=== PATIENT | female | born 1990 | race African-American/Black ===

== ENCOUNTER 2022-05-27 02:57 | Inpatient (IN) | payer MEDICAID ==
[~2022-05-27] VITALS: Ht 149.9 cm; Wt 54.4 kg
[2022-05-27] MEDS ORDERED: METHYLPREDNISOLONE SOD SUCC 125 MG/2 ML VIAL IV STA (03:17)
[2022-05-27] MEDS ORDERED: IPRATROPIUM BROMIDE (0.02%) 0.5MG/2.5ML NEB HHN STA ×2 (03:17→08:54)
[2022-05-27] MEDS ORDERED: ALBUTEROL (0.083%) 2.5MG/3ML NEB HHN SCH (03:30)
[2022-05-27] MEDS ORDERED: SODIUM CHLORIDE 0.9% 1,000 ML IV ONE (03:30)
[2022-05-27] MEDS ORDERED: MAGNESIUM 2 G PREMIX 50 ML IV ONE (03:30)
[2022-05-27 04:05] LABS: HEMATOCRIT. 42.5 % (36.0-48.0); MEAN CORPUSCULAR HEMOGLOBIN 28.8 pg (28.0-32.0); MEAN CORPUSCULAR VOLUME 87.6 fL (81.0-99.0); MEAN PLATELET VOLUME 7.8 fl (7.4-10.4); PLATELET 290 x1000/uL (130-400); RED BLOOD CELL COUNT 4.85 mill/uL (4.2-5.4); RED CELL DISTRIBUTION WIDTH 13.9 % (11.6-14.6)
[2022-05-27 04:52] LABS: CHLORIDE 106 mEq/L (98-107)
[2022-05-27 05:01] LABS: PLATELET ESTIMATE NORMAL
[2022-05-27] MEDS ORDERED: LEVOFLOXACIN 750MG PREMIX 150 ML IV ONE (06:00)
[2022-05-27] MEDS ORDERED: LEVOFLOXACIN 750MG PREMIX 150 ML IV SCH (07:45)
[2022-05-27] MEDS ORDERED: POTASSIUM CHLORIDE 20MEQ TABLET SR PO NR (08:45)
[2022-05-27] MEDS ORDERED: ALBUTEROL (0.083%) 2.5MG/3ML NEB HHN STA (08:54)
[2022-05-27] MEDS: LORAZEPAM 0.5MG TABLET PO NR ×2 (10:00→16:54)
[2022-05-27] MEDS: GUAIFENESIN-DM 200MG-20MG/10ML UDC PO PRN (11:46)
[2022-05-27] MEDS: LORAZEPAM 2MG/ML CPJ IV PRN ×2 (11:46→16:57)
[2022-05-27 11:59] LABS: CLARITY URINE CLEAR (CLEAR); COLOR URINE YELLOW (YELLOW); KETONES URINE NEGATIVE (NEGATIVE); LEUKOCYTE ESTERASE URINE NEGATIVE (NEGATIVE); NITRITE URINE NEGATIVE (NEGATIVE); OCCULT BLOOD URINE TRACE (NEGATIVE); PH URINE 5.5 (4.5-8.0); PROTEIN URINE NEGATIVE (NEGATIVE); SPECIFIC GRAVITY URINE 1.005 (1.005-1.030); UROBILINOGEN URINE 0.2 E.U./dL (0.2-1.0)
[2022-05-27] MEDS ORDERED: IPRATROPIUM/ALBUTEROL 0.5-3(2.5)MG/3ML NEB HHN SCH (12:00)
[2022-05-27 12:46] LABS: *AMPHETAMINES SCREEN URINE NEGATIVE (NEGATIVE); *BARBITURATES SCREEN URINE NEGATIVE (NEGATIVE); *BENZODIAZEPINES SCREEN URINE NEGATIVE (NEGATIVE); *COCAINE SCREEN URINE NEGATIVE (NEGATIVE); METHADONE URINE SCREEN NEGATIVE (NEGATIVE); OPIATES URINE SCREEN NEGATIVE (NEGATIVE); PHENCYCLIDINE URINE SCREEN NEGATIVE (NEGATIVE)
[2022-05-27] MEDS ORDERED: IPRATROPIUM/ALBUTEROL 0.5-3(2.5)MG/3ML NEB HHN PRN (13:00)
[2022-05-27 13:16] LABS: CANNABINOID URINE SCREEN PRESUMTIVE POSITIVE (NEGATIVE)
[2022-05-27 14:20] VITALS: BP 122/90
[2022-05-27] MEDS: METHYLPREDNISOLONE SOD SUCC 40 MG/ML VIAL IV SCH ×2 (14:47→20:51)
[2022-05-27] MEDS: BENZONATATE 100MG CAPSULE PO SCH ×2 (14:49→20:51)
[2022-05-27 16:00] VITALS: BP 126/87
[2022-05-27] MEDS ORDERED: KETOROLAC 30MG/ML VIAL IV PRN (16:15)
[2022-05-27] MEDS ORDERED: MORPHINE SULFATE 2 MG/ML CPJ (NOT FOR IM USE) IV PRN (16:15)
[2022-05-27] MEDS ORDERED: NALOXONE HCL 0.4MG/ML VIAL IV PRN (16:15)
[2022-05-27] MEDS: IPRATROPIUM BROMIDE (0.02%) 0.5MG/2.5ML NEB HHN SCH ×2 (16:26→20:25)
[2022-05-27 16:50] VITALS: BP 125/78
[2022-05-27] MEDS: MONTELUKAST SODIUM 10MG TABLET PO SCH (16:55)
[2022-05-27] MEDS ORDERED: ALBU4TAB6 PO (17:08)
[2022-05-27 20:00] VITALS: BP 133/90
[2022-05-27] MEDS ORDERED: LORAZEPAM 2MG/ML CPJ IV NR (20:30)
[2022-05-28] VITALS: BP 110/87
[2022-05-28] MEDS: IPRATROPIUM BROMIDE (0.02%) 0.5MG/2.5ML NEB HHN SCH ×6 (00:33→21:19)
[2022-05-28] MEDS: LORAZEPAM 2MG/ML CPJ IV PRN (01:45)
[2022-05-28 04:00] VITALS: BP 120/55
[2022-05-28] MEDS: BENZONATATE 100MG CAPSULE PO SCH ×3 (06:03→21:14)
[2022-05-28] MEDS: METHYLPREDNISOLONE SOD SUCC 40 MG/ML VIAL IV SCH ×3 (06:03→21:14)
[2022-05-28 08:00] VITALS: BP 110/69
[2022-05-28] MEDS ORDERED: LEVOFLOXACIN 500MG PREMIX 100 ML IV SCH (10:00)
[2022-05-28 10:45] LABS: HEMATOCRIT. 38.3 % (36.0-48.0); HEMOGLOBIN. 12.6 g/dL (12.0-16.0); MEAN CORPUSCULAR HEMOGLOBIN 28.8 pg (28.0-32.0); MEAN CORPUSCULAR VOLUME 87.9 fL (81.0-99.0); MEAN PLATELET VOLUME 8.5 fl (7.4-10.4); PLATELET 237 x1000/uL (130-400); RED BLOOD CELL COUNT 4.36 mill/uL (4.2-5.4); RED CELL DISTRIBUTION WIDTH 14.1 % (11.6-14.6)
[2022-05-28 10:51] LABS: CHLORIDE 109 mEq/L (98-107)
[2022-05-28 12:00] VITALS: BP 111/57
[2022-05-28 13:20] LABS: PLATELET ESTIMATE NORMAL
[2022-05-28] MEDS: LEVOFLOXACIN 500MG PREMIX 100 ML IV SCH (14:20)
[2022-05-28 16:00] VITALS: BP 99/60
[2022-05-28] MEDS: MONTELUKAST SODIUM 10MG TABLET PO SCH (17:25)
[2022-05-28] MEDS: GUAIFENESIN-DM 200MG-20MG/10ML UDC PO PRN (17:25)
[2022-05-28 20:00] VITALS: BP 105/61
[2022-05-29] VITALS: BP 105/55
[2022-05-29] MEDS: IPRATROPIUM BROMIDE (0.02%) 0.5MG/2.5ML NEB HHN SCH ×7 (00:15→20:33)
[2022-05-29 04:00] VITALS: BP 98/58
[2022-05-29] MEDS: BENZONATATE 100MG CAPSULE PO SCH ×3 (06:00→21:30)
[2022-05-29] MEDS: METHYLPREDNISOLONE SOD SUCC 40 MG/ML VIAL IV SCH ×2 (06:00→13:32)
[2022-05-29 08:00] VITALS: BP 100/53
[2022-05-29 11:16] LABS: HEMATOCRIT. 39.8 % (36.0-48.0); HEMOGLOBIN. 13.2 g/dL (12.0-16.0); MEAN CORPUSCULAR HEMOGLOBIN 28.7 pg (28.0-32.0); MEAN CORPUSCULAR VOLUME 86.6 fL (81.0-99.0); PLATELET 261 x1000/uL (130-400); RED BLOOD CELL COUNT 4.59 mill/uL (4.2-5.4)
[2022-05-29 11:39] LABS: CHLORIDE 105 mEq/L (98-107)
[2022-05-29 12:00] VITALS: BP 105/67
[2022-05-29] MEDS: LEVOFLOXACIN 500MG PREMIX 100 ML IV SCH (13:32)
[2022-05-29 16:00] VITALS: BP 106/58
[2022-05-29] MEDS: MONTELUKAST SODIUM 10MG TABLET PO SCH (17:16)
[2022-05-29] MEDS: GUAIFENESIN-DM 200MG-20MG/10ML UDC PO PRN (17:17)
[2022-05-29 20:00] VITALS: BP_SYST 110; BP_SYST 130; BP_DIAS 56; BP_DIAS 63
[2022-05-29 23:34] LABS: PLATELET ESTIMATE NORMAL
[2022-05-30] VITALS: BP 90/52
[2022-05-30 04:00] VITALS: BP 95/40
[2022-05-30] MEDS: BENZONATATE 100MG CAPSULE PO SCH (05:28)
[2022-05-30 08:00] VITALS: BP 100/70
[2022-05-30] MEDS ORDERED: TUSSL PO (08:16)
[2022-05-30] MEDS ORDERED: MONT10TA21 PO (08:16)
[2022-05-30] MEDS ORDERED: LEVO750T68 MT (08:16)
[2022-05-30] MEDS ORDERED: P20 PO (08:16)
[2022-05-30 08:29] VITALS: BP 100/70
[2022-05-30] MEDS ORDERED: PREDNISONE 20MG TABLET PO SCH (09:00)
[2022-05-30] MEDS: IPRATROPIUM BROMIDE (0.02%) 0.5MG/2.5ML NEB HHN SCH (09:50)
== END 2022-05-30 11:37 | disposition home or self-care (01) | DRG 139 ==
LOC: ER 02:57 → 8WST 05:53 → EDBEDREQTM 05:55 → EDBEDREQ 05:55
PROVIDERS: ADMIT Internal Medicine; ATTEND Internal Medicine
PROC: 5A09357 Assistance with Respiratory Ventilation, Less than 24 Consecutive Hours, Continuous Positive Airway Pressure (ICD-10-PCS; principal; 2022-05-27)
DX: J18.9 Pneumonia, unspecified organism (principal); J96.00 Acute respiratory failure, unspecified whether with hypoxia or hypercapnia; J45.902 Unspecified asthma with status asthmaticus; J45.901 Unspecified asthma with (acute) exacerbation; Z20.822 Contact with and (suspected) exposure to COVID-19; E87.6 Hypokalemia; F12.90 Cannabis use, unspecified, uncomplicated; Z88.0 Allergy status to penicillin
CPT/HCPCS: 36415; 71045; 80048; 80053; 80305; 81003; 83605; 83880; 84484; 85025; 85379; 87426; 87804; 93005; 94640; 99291; C9803; J1956; J2060; J2920; J2930; J3475; J7030; J7512